=== PATIENT | male | born 1990 | race Two or more races ===

== ENCOUNTER 2022-07-08 18:15 | Emergency (ER) | payer OTHER ==
[2022-07-08 18:25] VITALS: BP 110/55; PULSE 91; RESP 18; TEMP 102; BMI 27.4
[2022-07-08] MEDS ORDERED: ACETAMINOPHEN 325 MG TABLET (FP) PO ONE (18:47)
[2022-07-08] MEDS ORDERED: DEXAMETHASONE SOD PHOSPHATE 10 MG/1 ML VIAL IVPUSH ONE (18:47)
[2022-07-08] MEDS ORDERED: IBUPROFEN 600 MG TABLET (FP) PO ONE (18:47)
[2022-07-08] MEDS ORDERED: ACETAMINOPHEN 325 MG TABLET (FP) ONE (18:54)
[2022-07-08] MEDS ORDERED: DEXAMETHASONE SOD PHOSPHATE 10 MG/1 ML VIAL ONE (18:54)
[2022-07-08] MEDS ORDERED: IBUPROFEN 400 MG TABLET (FP) PO ONE (18:54)
[2022-07-08] MEDS ORDERED: PENICILLIN G BENZATHINE 1,200,000 UNIT/2 ML PFS IM ONE ×2 (20:09→20:13)
== END 2022-07-08 20:47 | disposition home or self-care (01) ==
LOC: JERFT 18:15
PROC: 3E033GC Introduction of Other Therapeutic Substance into Peripheral Vein, Percutaneous Approach (ICD-10-PCS; principal; 2022-07-08)
PROC: 3E02329 Introduction of Other Anti-infective into Muscle, Percutaneous Approach (ICD-10-PCS; 2022-07-08)
DX: J02.0 Streptococcal pharyngitis (principal)
CPT/HCPCS: 0241U-QW; 87651; 99285-25; J1100